=== PATIENT | female | born 1990 | race Caucasian/White ===

== ENCOUNTER 2018-01-06 19:30 | Emergency (ER) | payer OTHER ==
[2018-01-06 20:24] LABS: PLATELET COUNT 424 10^3/uL (150-400)
--- NOTE | 2018-01-06 20:25 | EDPHY ---
H & P Stated Complaint: taking lithium feels strange - Personal History LMP (Females 10-55): 1-7 Days Ago Current Tetanus/Diphtheria Vaccine: Unsure Current Tetanus Diphtheria and Acellular Pertussis (TDAP): Unsure - Medical/Surgical History Hx Asthma: No Hx Chronic Respiratory Disease: No Hx Diabetes: No Hx Cardiac Disease: No Hx Renal Disease: No Hx Cirrhosis: No Hx Alcoholism: No Hx HIV/AIDS: No Hx Splenectomy or Spleen Trauma: No Other PMH: bipolar 2, - Social History Smoking Status: Never smoked Time Seen by Provider: 01/06/18 19:43 HPI/ROS: CHIEF COMPLAINT: Concerns about lithium toxicity HISTORY OF PRESENT ILLNESS: 27-year-old female history of bipolar disorder, started on lithium 3 weeks ago, had her 1st drink of alcohol last evening, states that she has been feeling"weird"since this morning, concerned that she is in sufficiently hydrated. No nausea or vomiting. No abdominal pain. No suicidal or homicidal ideation. No seizure. No hallucination. REVIEW OF SYSTEMS: A ten point review of systems was performed and is negative with the exception of the items mentioned in the HPI PAST MEDICAL & SURGICAL HISTORY: Bipolar disorder SOCIAL HISTORY:Positive for alcohol use this evening, 3 rum and Coke drinks PHYSICAL EXAM (Prior to examination, patient consented to physical exam, hands were washed and my usual and customary physical exam procedures followed) 1) GENERAL: Well-developed, well-nourished, alert and oriented. Appears to be in no acute distress. 2) HEAD: Normocephalic, atraumatic 3) HEENT: Pupils equal, round, reactive to light bilaterally. Sclera anicteric. Nasopharynx, oropharynx, clear, no lesions. No lesions. Moist mucous membrane 4) NECK: Full range of motion, no meningeal signs. 5) LUNGS: Clear auscultation bilaterally, no wheezes, no rhonchi, no retractions. 6) HEART: Regular rate and rhythm, no murmur, no heave, no gallop. 7) ABDOMEN: No guarding, no rebound, no focal tenderness, negative McBurney's, negative Lin's, negative Rovsing's, negative peritoneal sign, unable to elicit any pain 8) MUSCULOSKELETAL: Moving all extremities, no focal areas of tenderness, no obvious trauma. No peripheral edema or discoloration. 9) BACK: No CVA tenderness, no midline vertebral tenderness, no fluctuance, no step-off, no obvious trauma, no visual or palpable abnormality. 10) SKIN: No rash, no petechiae. 11) Psychiatric: Patient is oriented X 3, there is no agitation. DIFFERENTIAL DIAGNOSIS: In no particular include but limited to acute alcohol withdrawal, medication adverse effect, lithium toxicity (Charo Kennedy Brie) Constitutional: Initial Vital Signs Temperature (C) 37 C 01/06/18 19:35 Heart Rate 105 H 01/06/18 19:35 Respiratory Rate 16 01/06/18 19:35 Blood Pressure 133/97 H 01/06/18 19:35 O2 Sat (%) 99 01/06/18 19:35 O2 Delivery Mode Room Air Allergies/Adverse Reactions: No Known Allergies Allergy (Unverified 01/06/18 19:38) Home Medications: Medication Instructions Recorded Amphet Asp and D/Amphet [Adderall 01/06/18 10 MG (*)] Askov Carbonate 01/06/18 Medical Decision Making ED Course/Re-evaluation: 8:24 p.m.: I evaluated the patient. Will obtain laboratory studies, specifically will obtain lithium level to answer she is not lithium toxic. Will also obtain EKG as lithium can cause cardiac dysrhythmias. 10:20 p.m..: Re-evaluation. She has received IV hydration. Pulse rate currently in the mid 90s. She is feeling improvement. Discussed her sub therapeutic lithium level. Today is Tuesday night. Recommend she discuss this with her psychiatrist next week with whom she already has a standing appointment. She has no complaints of abdominal pain, no nausea, no vomiting. We discussed possibility of her prior symptoms of feeling "weird and off" as possibly secondary to interaction with alcohol and lithium. Recommend avoiding alcohol. Doubt acute alcohol withdrawal. Doubt delirium tremens. At this time I do not think that further diagnostic studies are indicated from the emergency department. She denies suicidal or homicidal ideation does not meet criteria for an M1 hold. If any point she develops nausea, vomiting, abdominal pain or any mental health concerns, recommend she return to the ER immediately. She feels comfortable being discharged. All questions and concerns addressed by myself. (Charo Kennedy Brie) The patient was evaluated and managed by the physician assistant center manager. I have reviewed this chart and I agree with the findings and plan of care as documented , as indicated by my signature. I am the secondary supervising physician. ( Charley Pereira) - Data Points Laboratory Results: Laboratory Results 01/06/18 20:14 01/06/18 20:14 Medications Given: Discontinued Medications Sodium Chloride (Ns) 1,000 mls @ 0 mls/hr IV ONCE ONE PRN Reason: Wide Open Stop: 01/06/18 22:12 Last Admin: 01/06/18 22:16 Dose: 1,000 mls Departure - Departure Disposition: Home, Routine, Self-Care Clinical Impression: Askov use Condition: Good Instructions: Askov (By mouth) Additional Instructions: Avoid alcohol. Return to the ER if you experience nausea, vomiting, abdominal pain, thoughts of hurting yourself or others or any other symptoms that concern you. Referrals: Keep, your appointment with your psychiatrist next week [Other] - As per Instructions
--- NOTE | 2018-01-06 21:44 | CPEKG ---
Heart Rate: 95 RR Interval: 632 P-R Interval: 128 QRSD Interval: 80 QT Interval: 376 QTC Interval: 473 P [place]: 75 QRS [place]: 51 T Wave [place]ron: -15 EKG Severity - BORDERLINE ECG - EKG Impression: SINUS RHYTHM EKG Impression: BORDERLINE T ABNORMALITIES, DIFFUSE LEADS Electronically Signed By: Charley Pereira 06-Jan-2018 22:21:32
[2018-01-06] MEDS ORDERED: NS 1,000 ML IV ONE (22:11)
[2018-01-06 22:50] VITALS: BP 128/80
== END 2018-01-06 22:48 | disposition home or self-care (01) ==
LOC: EEVIPCON 19:30
DX: R78.89 Finding of other specified substances, not normally found in blood (principal)